=== PATIENT | male | born 1970 | race Two or more races ===

== ENCOUNTER 2019-10-01 08:56 | Emergency (ER) | payer OTHER ==
[~2019-10-01] VITALS: Ht 167.6 cm; Wt 95.3 kg
[2019-10-01 09:10] VITALS: BP 148/90
[2019-10-01] MEDS ORDERED: ACETAMINOPHEN 500 MG TAB PO ONE (09:15)
== END 2019-10-01 10:36 | disposition home or self-care (01) ==
LOC: ER 08:56
DX: S83.91XA Sprain of unspecified site of right knee, initial encounter (principal); S93.401A Sprain of unspecified ligament of right ankle, initial encounter; X50.1XXA Overexertion from prolonged static or awkward postures, initial encounter; Y93.89 Activity, other specified; Y92.89 Other specified places as the place of occurrence of the external cause; Y99.8 Other external cause status
CPT/HCPCS: 73562; 73610